=== PATIENT | male | born 1995 | race Caucasian/White ===

== ENCOUNTER 2017-12-27 09:01 | Day surgery (SDC) | payer OTHER ==
[~2017-12-27 09:01] MED LIST: ACETAMINOPHEN 1000 MG/100 ML IVPB
[2017-12-27] MEDS ORDERED: PROPOFOL 20 ML (12:45)
[2017-12-27] MEDS ORDERED: MIDAZOLAM 1 MG/ML 2 ML INJ (12:46)
[2017-12-27] MEDS ORDERED: ROPIVACAINE 0.5 % 30 ML VIAL (12:46)
[2017-12-27] MEDS ORDERED: FENTAnyl 50 MCG/ML VIAL (12:46)
[2017-12-27] MEDS ORDERED: METOCLOPRAMIDE 10 MG INJ (12:46)
[2017-12-27] MEDS ORDERED: ONDANSETRON 4 MG INJ (12:46)
[2017-12-27] MEDS ORDERED: CEFAZOLIN 1 GM INJ (12:47)
[2017-12-27] MEDS ORDERED: HYDROmorphONE 1 MG/5 ML IV SYRINGE IV ×3 (13:00)
[2017-12-27] MEDS ORDERED: OXYCODONE/ACETAMINOPHEN (5/325) TAB PO ×2 (13:00)
[2017-12-27] MEDS ORDERED: DIPHENHYDRAMINE 50 MG INJ IV (13:00)
[2017-12-27] MEDS ORDERED: ONDANSETRON 4 MG INJ IV (13:00)
[2017-12-27] MEDS ORDERED: HYDROmorphONE 2 MG/ML SYG (13:23)
[2017-12-27] MEDS ORDERED: morphine 2 MG INJ IV (13:30)
[2017-12-27] MEDS: THROMBIN 5000 UNIT VIAL (14:16)
[2017-12-27] MEDS: POLYMYXIN/BACITRACIN 1L IRRIG (14:16)
[2017-12-27] MEDS: CA CHLORIDE 10% 10 ML SYRINGE (14:16)
[2017-12-27] MEDS ORDERED: NEOMYC/POLYMYX/BACIT 30 GM OINT (15:27)
[2017-12-27] MEDS: MEPERIDINE 25 MG INJ IV (16:13)
== END 2017-12-27 17:56 | disposition home or self-care (01) ==
LOC: SDS 09:01
DX: M25.862 Other specified joint disorders, left knee (principal); M76.52 Patellar tendinitis, left knee
CPT/HCPCS: 27380; 82306; 88304